=== PATIENT | male | born 2005 | race Caucasian/White ===

== ENCOUNTER 2025-03-14 15:58 | Emergency (ER) | payer OTHER, MEDICAID, SELFPAY ==
--- NOTE | ~2025-03-14 | XR_ITS ---
Clinical history:. Trauma. EXAM:X-ray finger fourth left minimum 2 views TECHNIQUE:4 images of the left fourth finger were obtained. Comparisons:None available FINDINGS: [ No significant degenerative change.] [ No radiographic evidence for an acute fracture or dislocation.] [ No radiopaque foreign body.] [ No sclerotic or destructive bone lesions.] IMPRESSION: 1. No fracture identified. If symptoms persist or worsen consider a short-term follow-up study or additional imaging for further assessment. Reviewed, dictated and finalized at location Q. IMPRESSION: 1. No fracture identified. If symptoms persist or worsen consider a short-term follow-up study or addition al imaging for further assessment.
[2025-03-14 16:00] VITALS: BP 119/70; PULSE 88; RESP 20; TEMP 36.8; O2SAT 100
--- NOTE | 2025-03-14 16:01 | ED_ITS ---
HPI - General Adult General Chief complaint: Extremity Injury, Upper Stated complaint: FINGER INJURY Time Seen by Provider: 03/14/25 16:01 Source: patient Mode of arrival: ambulatory Limitations: no limitations History of Present Illness HPI narrative: 19 years old white male came to the ED with pain at the tip of the left ring finger after got smashed between a brick wall and a metal object. He denies other injuries. Related Data Home Medications ?Medication ?Instructions ?Recorded ?Confirmed ?Last Taken ?Type No Home Medications 03/14/25 03/14/25 U nknown History Allergies Allergy/AdvReac Type Severity Reaction Status Date / Time No Known Allergies Allergy Verified 03/14/25 16:07 Review of Systems Review of Systems: All systems reviewed & are unremarkable except as noted in HPI and below Exam Narrative: General appearance: Well-developed, well-nourished Skin: Normal color Vascular: Normal peripheral pulses, normal capillary refill. Musculoskeletal: Left ring finger showing abrasion at the tip dorsally, less than 25% sub angular hematoma otherwise no swelling, no deformity, no erythema, no discharge Neurologic: Alert and oriented ?3, Course Vital Signs Vital signs: Vital Signs Temperature 36.8 C 03/14/25 16:00 Pulse Rate 88 03/14/25 16:00 Respiratory Rate 20 03/14/25 16:00 Blood Pressure 119/70 03/14/25 16:00 Pulse Oximetry 100 03/14/25 16:00 Temperature 36.8 C 03/14/25 16:00 Pulse Rate 88 03/14/25 16:00 Respiratory Rate 20 03/14/25 16:00 Blood Pressure 119/70 03/14/25 16:00 Pulse Oximetry 100 03/14/25 16:00 Medical Decision Making Vital Signs Vital Signs: Vital Signs Temperature 36.8 C 03/14/25 16:00 Pulse Rate 88 03/14/25 16:00 Respiratory Rate 20 03/14/25 16:00 Blood Pressure 119/70 03/14/25 16:00 Pulse Oximetry 100 03/14/25 16:00 Temperature 36.8 C 03/14/25 16:00 Pulse Rate 88 03/14/25 16:00 Respiratory Rate 20 03/14/25 16:00 Blood Pressure 119/70 03/14/25 16:00 Pulse Oximetry 100 03/14/25 16:00 Imaging Data Radiologist's impression: Impressions Finger X-Ray 03/14/25 16:13 IMPRESSION: 1. No fracture identified. If symptoms persist or worsen consider a short-term follow-up study or additional imaging for further assessment. Critical Care Time Critical Care Time Critical Care Time: No Discharge Plan Discharge Clinical Impression: Contusion of finger, Abrasion hand Patient Disposition: Home Condition: Stable Instructions: Subungual Hematoma (ED) Additional Instructions: Return if symptoms are worsening , call your family physician for appointment, take Tylenol, ibuprofen as as needed for aches and pain, continue home medications. Patient Language: [place] Islander Prescriptions: No Action No Home Medications Follow-up/Referrals: UNKNOWN,DOCTOR [Primary Care Provider]
[2025-03-14] MEDS: NEOMYCIN/POLYMYXIN/BACITRACIN OINTMENT PACKET 1 PACKET TOPICAL (16:29)
--- OUTSIDE RECORDS SUMMARY | 2025-03-14 17:49 | XMS_ITS | Clinical Summary ---
Author Organization [facility] Address [facility] [place] [address] Care Team Providers Care Police Dispatcher Name Role Phone None, Provider MD Primary Care Provider Unavaila ble Allergies No known active allergies Medications amoxicillin-clav ulanate (AUGMENTIN) 400-57 MG/5ML suspension TAKE 10 ML BY MOUTH EVERY TWELVE HOURS 07/31/2023 Active Immunizations Immunization Administration Dates Next Due Tdap (Boostrix) 03/16/2023 Social History Tobacco Use Types Packs/Day Years Used Date Smoking Tobacco: Never Passive Smoke Exposure: Never Smokeless Tobacco: Never Tobacco Cessation:Counseling Given: Not Answered Alcohol Use Standard Drinks/Week Comments Never 0 (1 standard drink = 0.6 oz pur e alcohol) PHQ-2 Answer Date Recorded Patient Health Questionnaire-2 Score 0 08/09/2023 Sex and Gender Information Value Date Recorded Sex Assigned at Not on file 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 Gender Identity Not on file Sexual Orientation Not on file Last Filed Vital Signs Vital Sign Reading Time Taken Comments Blood Pressure 102/74 08/09/2023 6:27 PM CDT Pulse 100 08/09/2023 6:27 PM CDT Temperature 36.7 C (98 F) 08/09/2023 6:27 PM CDT Respiratory Rate 16 08/09/2023 6:27 PM CDT Oxygen Saturation 98% 08/09/2023 6:27 PM CDT Inhaled Oxygen Concentration - - Weight 62.1 kg (137 lb) 08/09/2023 6:27 PM CDT Height 185.4 cm (6' 1) 08/09/2023 6:27 PM CDT Body Mass Index 18.07 08/09/2023 6:27 PM CDT Plan of Treatment Health Maintenance Due Date Last Done Comments Annual Physical 10/03/2007 Hepatitis A Vaccines (2 of 2 - 2-dose series) 05/16/2016 11/15/2015 HPV Vaccines (1 - Male 3-dose series) 10/03/2019 Meningococcal B Vaccine (1 of 2 - Standard) 2020 Hepatitis C 2022 PHQ-2 (Physician [place]) 05/18/2024 08/09/2023 COVID-19 Vaccine (1 - season) 2025 Influenza Adult (#1) 2025 04/05/2008 DTaP, Tdap and Td Vaccines (8 - Td or Tdap) 03/16/2033 03/16/2023, 11/15/2015, 02/20/2010, Additional history exists Hepatitis B Vaccines Completed 04/07/2005, 01/30/2005, 2004, Additional history exists Pneumococcal Vaccine: Pediatrics (0 to 5 Years) and At-Risk Patients (6 to 49 Years) Aged Out 10/03/2005, 04/07/2005, 01/30/2005, Additional history exists No longer eligible based on patient's age to complete this topic Meningococcal Vaccine Aged Out 11/15/2015 No jose francisco eligible based on patient's age to complete this topic RSV Immunizations Under 20 Months Aged Out No longer eligible based on patient's age to complete this topic Insurance AETNA Care Teams Police Dispatcher Relationship Specialty Start Date End Date None, Provider, PCP - General UNKNOWN PHYSICIAN SPECIALTY 03/15/23
== END 2025-03-14 16:42 | disposition home or self-care (01) ==
PROVIDERS: Emergency Provider Emergency Medicine
DX: S60.415A Abrasion of left ring finger, initial encounter (principal); W23.0XXA Caught, crushed, jammed, or pinched between moving objects, initial encounter
CPT/HCPCS: 73140; 99283

== ENCOUNTER 2025-03-16 15:39 | Emergency (ER) | payer OTHER, MEDICAID, SELFPAY ==
[2025-03-16 15:39] VITALS: BP 123/75; PULSE 64; RESP 16; TEMP 36.8; O2SAT 97
--- OUTSIDE RECORDS SUMMARY | 2025-03-16 15:48 | XMS_ITS | Clinical Summary ---
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
--- NOTE | 2025-03-16 15:56 | ED.WOUNDLAC ---
HPI - Wound/Laceration General Chief Complaint: Wound/Laceration Stated Complaint: fingernail pulled off left ring finger Time Seen by Provider: 03/16/25 15:55 Source: patient and family Mode of arrival: ambulatory Limitations: no limitations History of Present Illness HPI narrative: This is a 19-year-old male with nail fingernail injury that occurred a few days ago and had a loose a fingernail on the 4th left finger and took a pair of pliers today and remove the rest of his nail. Currently there is no bleeding there is no numbness tingling has good range of motion as finger up-to-date with his tetanus. Onset (ago): hour(s) Place: home Patient tetanus UTD: Yes Context: accidental Related Data Home Medications ?Medication ?Instructions ?Recorded ?Confirmed ?Last Taken ?Type No Home Medications 03/14/25 03/14/25 Unknown History Allergies Allergy/AdvReac Type Severity Reaction Status Date / Time No Known Allergies Allergy Verified 03/14/25 16:07 Review of Systems Review of Systems: All systems reviewed & are unremarkable except as noted in HPI and below Exam Const: General: healthy appearing and no acute distress Nutritional Appearance: well nourished Resp: Effort & Inspection: normal respiratory effort Auscultation: clear to auscultation bilaterally Cardio: Rate: regular rate Rhythm: regular rhythm GI: GI Palp: Yes Soft to palpation Auscultation: normal bowel sounds Extrem: Other: Finger nail avulsion to his left 4th fingernail currently no bleeding Course Course Emergency Course: Medical decision making narrative: The patient was evaluated by myself in the emergency department. History obtained from patient who is an independent historian physical exam performed and witnessed by the nurse. Patient had his fingernail removed by himself with a pair of pliers up-to-date with his tetanus. Currently pain level is well controlled. Repeat assessment Doing well on repeat exam with no acute distress Repeat vitals are stable Patient agrees with discussion after shared medical decision making and agrees with discharge. All questions answered to the patient's satisfaction Triple antibiotic ointment was applied to the nail avulsion and wrapped with gauze. Advised follow-up with primary care physician within next 3 to 5 days. Vital Signs Vital signs: Vital Signs Temperature 36.8 C 03/16/25 15:39 Pulse Rate 64 03/16/25 15:39 Respiratory Rate 16 03/16/25 15:39 Blood Pressure 123/75 03/16/25 15:39 Pulse Oximetry 97 03/16/25 15:39 Oxygen Delivery Room Air 03/16/25 15:39 Temperature 36.8 C 03/16/25 15:39 Pulse Rate 64 03/16/25 15:39 Respiratory Rate 16 03/16/25 15:39 Blood Pressure 123/75 03/16/25 15:39 Pulse Oximetry 97 03/16/25 15:39 Oxygen Delivery Room Air 03/16/25 15:39 Critical Care Time Critical Care Time Critical Care Time: No Discharge Plan Discharge Clinical Impression: Avulsion of nail Patient Disposition: Home Condition: Stable Instructions: Antibiotic Form, Nail Avulsion (ED) Additional Instructions: Advised patient to take Tylenol or Motrin as needed, and can use Neosporin daily x3 days, follow-up with primary care physician if symptoms persist or worsen. Patient Language: Belgian Prescriptions: No Action No Home Medications Follow-up/Referrals: UNKNOWN,DOCTOR [Primary Care Provider] Time of Disposition: 16:00
--- NOTE | 2025-03-16 16:19 | PC.NURSE ---
On 03/16/25, the student, [JILL GLOVER ], provided care and completed [facility] documentation on this patient. I have reviewed the student's documentation and agree with the findings.
== END 2025-03-16 16:18 | disposition home or self-care (01) ==
LOC: CHSED 16:04
PROVIDERS: Emergency Provider Emergency Medicine
DX: S61.305A Unspecified open wound of left ring finger with damage to nail, initial encounter (principal); X58.XXXA Exposure to other specified factors, initial encounter
CPT/HCPCS: 99282

== ENCOUNTER 2025-04-14 01:17 | Emergency (ER) | payer OTHER, MEDICAID, SELFPAY ==
[2025-04-14 01:17] VITALS: BP 133/83; PULSE 86; RESP 20; TEMP 36.2; O2SAT 100
--- NOTE | 2025-04-14 01:26 | ED_ITS ---
HPI - General Adult General Chief complaint: Nausea/Vomiting/Diarrhea Stated complaint: vomiting Time Seen by Provider: 04/14/25 01:24 History of Present Illness HPI narrative: Michael is a previously healthy 19M that presented to the ED via EMS. He called the ambulance as he took 7 shots of everclear and started to have non-bloody vomiting. He took the shots to forget about a break up and not to harm himself. He reports nausea, vomiting and aches. NO CP or dyspnea. Related Data Home Medications ?Medication ?Instructions ?Recorded ?Confirmed ?Last Taken ?Type No Home Medications 03/14/25 03/16/25 U nknown History Allergies Allergy/AdvReac Type Severity Reaction Status Date / Time No Known Allergies Allergy Verified 03/16/25 16:21 Review of Systems 2 Review of Systems: All systems reviewed & are unremarkable except as noted in HPI and below Exam 2 Const: General: cooperative, healthy appearing, comfortable, no acute distress, well developed, alert, awake and Physically active O rientation/consciousness: oriented to person, oriented to place and oriented to time HENMT: Head: normal to inspection, normocephalic and atraumatic Ears: h earing grossly normal bilaterally and external ears normal Face/Nose/Sinus: N ormal external nose present Eyes: General: appearance normal, both eyes and all related structures P eriorbital: periorbital findings normal Sclera: sclerae normal Pupils: E qual, round and reactive pupils present Neck: Neck: normal visual inspection Chest: Chest palpation & inspection: normal inspection of the chest Resp: Effort & Inspection: normal respiratory effort, able to speak in complete sentences and no respiratory distress Auscultation: clear to auscultation bilaterally Cardio: Jugular venous distension: no JVD Rate: regular rate Rhythm: r egular rhythm GI: Inspection: normal to inspection GI Palp: Yes Soft to palpation A uscultation: normal bowel sounds Skin: General skin exam: normal color and no rashes or lesions noted Neuro: General: oriented to person, oriented to place and oriented to time Cranial nerves: Yes Equal, round and reactive pupils present Extrem: General: normal to inspection Course Course Emergency Course: Ordered fluids, pantoprazole, zofran and labs Vital Signs Vital signs: Vital Signs Temperature 97.1 F L 04/14/25 01:17 Pulse Rate 86 04/14/25 01:17 Respiratory Rate 20 04/14/25 01:17 Blood Pressure 133/83 04/14/25 01:17 Pulse Oximetry 100 04/14/25 01:17 Oxygen Delivery Room Air 04/14/25 01:17 Temperature 97.1 F L 04/14/25 01:17 Pulse Rate 86 04/14/25 01:17 Respiratory Rate 20 04/14/25 01:17 Blood Pressure 133/83 04/14/25 01:17 Pulse Oximetry 100 04/14/25 01:17 Oxygen Delivery Room Air 04/14/25 01:17 Medical Decision Making Vital Signs Vital Signs: Vital Signs Temperature 97.1 F L 04/14/25 01:17 Pulse Rate 86 04/14/25 01:17 Respiratory Rate 20 04/14/25 01:17 Blood Pressure 133/83 04/14/25 01:17 Pulse Oximetry 04/14/25 01:17 Oxygen Delivery Room Air 04/14/25 01:17 Temperature 97.1 F L 04/14/25 01:17 Pulse Rate 86 04/14/25 01:17 Respiratory Rate 20 04/14/25 01:17 Blood Pressure 133/83 04/14/25 01:17 Pulse Oximetry 04/14/25 01:17 Oxygen Delivery Room Air 04/14/25 01:17 Lab Data 04/14/25 01:54 04/14/25 01:54 Labs: Lab Results 04/14/25 Range/Units 01:54 WBC 8.5 (4.8-10.8) K/mm3 RBC 4.79 (4.70-6.10) M/mm3 Hgb 13.3 L (14.0-18.0) g/dL Hct 40.9 (40.0-54.0) % MCV 85.4 (78.0-102.0) fL MCH 27.8 (27.0-31.0) pg MCHC 32.5 (32-36) g/dL RDW 12.5 (11.6-14.4) % Plt Count 350 (150-420) K/mm3 MPV 9.4 (8.7-11.0) fl Immature Gran % (Auto) 0.2 H (0.0-0.0) % Neut % (Auto) 33.7 L (50.0-70.0) % Lymph % (Auto) 47.7 H (18.0-42.0) % Grant % (Auto) 9.5 (2.0-11.0) % Eos % (Auto) 8.3 H (1.0-6.0) % Baso % (Auto) 0.6 (0.0-1.0) % Lymph # (Auto) 4.03 (1.10-4.50) K/mm3 Grant # (Auto) 0.80 (0.10-0.90) K/mm3 Eos # (Auto) 0.70 H (0.02-0.50) K/mm3 Baso # (Auto) 0.05 (0.00-0.10) K/mm3 Abs Immat Gran (auto) 0.02 H (0.00-0.00) K/mm3 Absolute Neuts (auto) 2.85 (1.70-7.20) K/mm3 Absolute Nucleated RBC 0.00 (0.00-0.00) K/mm3 Nucleated RBC % 0.0 (0-0.0) % Sodium 147 H (137-145) mmol/L Potassium 3.2 L (3.4-5.0) mmol/L Chloride 109 H (98-107) mmol/L Carbon Dioxide 26 (22-30) mmol/L Anion Gap 12 (4-12) mmol/L BUN 13 (9-20) mg/dL Creatinine 0.77 (0.7-1.3) mg/dL Estim Creat Clear Calc 127 ml/min Estimated GFR > 60 (59 - ) Glucose 126 H (65-110) mg/dL Calculated Osmolality 306 H (285-295) mOsm/kg Calcium 8.4 (8.4-10.2) mg/dL Total Bilirubin 0.2 (0.2-1.3) mg/dL AST 29 (17-59) U/L ALT 15 (6-50) U/L Alkaline Phosphatase 65 (38-126) U/L Total Protein 6.4 (6.3-8.2) g/dL Albumin 4.3 (3.5-5.1) g/dL Ethyl Alcohol 127 (<10) mg/dL Discharge Plan Discharge Clinical Impression: Alcohol intoxication Patient Disposition: Home Condition: Stable Instructions: Alcohol Intoxication (ED) Patient Language: Vietnamese Prescriptions: No Action No Home Medications Follow-up/Referrals: Monroe,Phuong Alvarez MD [Primary Care Provider]
[2025-04-14] MEDS: SODIUM CHLORIDE 0.9% IV 1,000 ML 999 ML IV CONT (01:33)
[2025-04-14] MEDS: PANTOPRAZOLE SODIUM IV 40 MG VIAL IV PUSH (01:33)
[2025-04-14] MEDS: ONDANSETRON INJ 4 MG/2 ML VIAL IV PUSH (01:33)
--- NOTE | 2025-04-14 01:39 | PC.NURSE ---
PATIENT IS CURRENTLY RESTING ON STRETCHER. VOMITING HAS STOPPED AT THIS TIME. CALL LIGHT IN REACH. CURTAIN LEFT OPEN TO BE ABLE TO MONITOR PATIENT.
--- NOTE | 2025-04-14 01:51 | PC.NURSE ---
LISA WITH LAB AT THE BEDSIDE
--- NOTE | 2025-04-14 01:56 | PC.NURSE ---
FRIENDS AT THE BEDSIDE. PATIENT CURRENTLY VOMITING. PATIENT HAS BEEN MEDICATED FOR VOMITING AND NAUSEA
[2025-04-14 01:57] LABS: Hematocrit 40.9 % (40.0-54.0); Hemoglobin 13.3 g/dL (14.0-18.0); Immature Granulocyte Percent A 0.2 % (0.0-0.0); Lymphocytes Absolute Auto 4.03 K/mm3 (1.10-4.50); Mean Corpuscular HGB Conc 32.5 g/dL (32-36); Mean Corpuscular Hemoglobin 27.8 pg (27.0-31.0); Mean Corpuscular Volume 85.4 fL (78.0-102.0); Nucleated Red Blood Cells Absolute Auto 0.00 K/mm3 (0.00-0.00); Nucleated Red Blood Cells Perc 0.0 % (0-0.0); Platelet Count Result 350 K/mm3 (150-420); Red Blood Count 4.79 M/mm3 (4.70-6.10); White Blood Count 8.5 K/mm3 (4.8-10.8)
[2025-04-14 02:09] LABS: Alanine Aminotransferase 15 U/L (6-50); Albumin Level 4.3 g/dL (3.5-5.1); Alkaline Phosphatase 65 U/L (38-126); Anion Gap 12 mmol/L (4-12); Aspartate Amino Transferase 29 U/L (17-59); Bilirubin,Total 0.2 mg/dL (0.2-1.3); Blood Urea Nitrogen 13 mg/dL (9-20); Calcium 8.4 mg/dL (8.4-10.2); Carbon Dioxide 26 mmol/L (22-30); Chloride 109 mmol/L (98-107); Estimated CRCL calculation 127 ml/min; Estimated Glomerular Filt Rate > 60; Glucose 126 mg/dL (65-110); Osmolality Calculated 306 mOsm/kg (285-295); Potassium 3.2 mmol/L (3.4-5.0); Sodium 147 mmol/L (137-145); Total Protein 6.4 g/dL (6.3-8.2)
--- OUTSIDE RECORDS SUMMARY | 2025-04-14 02:22 | XMS_ITS | Clinical Summary ---
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
--- NOTE | 2025-04-14 02:23 | PC.NURSE ---
PATIENTS FRIENDS ARE AT THE BEDSIDE. ENCOURAGED THEM ALL TO LOWER VOICES WHILE IN DEPARTMENT.
[2025-04-14 03:25] VITALS: BP 112/59; PULSE 57; RESP 20; O2SAT 97
== END 2025-04-14 03:25 | disposition home or self-care (01) ==
PROVIDERS: Emergency Provider Family Medicine; PCP Family Medicine; Referring Provider Family Medicine
DX: F10.129 Alcohol abuse with intoxication, unspecified (principal); Y90.6 Blood alcohol level of 120-199 mg/100 ml
CPT/HCPCS: 36415; 80053; 82077; 85025; 96361; 96374; 96375; 99284; J2405; J2470; J7030

== ENCOUNTER 2025-04-30 04:42 | Emergency (ER) | payer SELFPAY ==
[2025-04-30] VITALS (43 sets, daily range): BP systolic 104–133; BP diastolic 58–83; PULSE 50–85; RESP 10–23; TEMP 36.7–37.2; O2SAT 96–100
--- NOTE | 2025-04-30 04:43 | ECG_ITS ---
Test Date: 2025-04-30 04:46:34 Measurements Intervals [place] Rate: 71 P: 43 RI: 141 QRS: 92 QRSD: 102 T: 49 QT: 381 QTc: 414 Interpretive Statements SINUS RHYTHM WITH SINUS ARRHYTHMIA RIGHT AXIS DEVIATION BORDERLINE ECG No previous ECG available for comparison Electronically Signed On 04-30-2025 09:26:29 UNIFORM PATROL POLICE OFFICER by Wilmer Kinsey D.O.
--- NOTE | 2025-04-30 04:50 | PC.NURSE ---
Call placed to Poison Control and orders received and obtained from [facility]. Orders and info given to Dr Sevilla for monitoring, labs, and a repeat post ingestion Tylenol level at the 4 hr corey around 0800. Case # [id number].
--- NOTE | 2025-04-30 05:04 | PC.NURSE ---
covid swab sent to lab
--- NOTE | 2025-04-30 05:16 | ED_ITS ---
HPI - Overdose General Chief Complaint: Overdose <Yogesh Sevilla MD - Last Filed: 04/30/25 06:52> Stated Complaint: SUICIDAL IDEATION <Yogesh Sevilla MD - Last Filed: 04/30/25 06:52> Time Seen by Provider: 04/30/25 04:55 <Yogesh Sevilla MD - Last Filed: 04/30/25 06:52> Source: patient and EMS <Yogesh Sevilla MD - Last Filed: 04/30/25 06:52> Mode of arrival: EMS <Yogesh Sevilla MD - Last Filed: 04/30/25 06:52> History of Present Illness HPI Narrative: This is a 19-year-old male brought in by EMS after a intentional overdose with Tylenol took a full bottle of 24 extra-strength 500mg Tylenol in an attempt to kill himself, patient states that he has been having thoughts and has taken Tylenol for the past 3 days and this morning around 4:00 a.m. patient took a 24 extra-strength Tylenol. Patient has been having emotional distress had a family member a couple of weeks ago and patient's mother kicked him out of the house. Patient has a history of depression but currently not on any medication. Patient currently is asymptomatic with no nausea vomiting, no anorexia or diaphoresis there is no abdominal pain, no abnormal temperature variations no yellowing of his skin or eyes no bleeding or bruising. <Yogesh Sevilla MD - Last Filed: 04/30/25 06:52> MD complaint: intentional overdose <Yogesh Sevilla MD - Last Filed: 04/30/25 06:52> Onset (ago): hour(s) <Yogesh Sevilla MD - Last Filed: 04/30/25 06:52> Time: 04:00 <Yogesh Sevilla MD - Last Filed: 04/30/25 06:52> Related Data Home Medications: Home Medications ?Medication ?Instructions ?Recorded ?Confirmed ?Last Taken ?Type No Home Medications 03/14/25 03/16/25 U nknown History <Yogesh Sevilla MD - Last Filed: 04/30/25 06:52> Allergies/Adverse Reactions: Allergies Allergy/AdvReac Type Severity Reaction Status Date / Time No Known Allergies Allergy Verified 04/30/25 04:49 <Yogesh Sevilla MD - Last Filed: 04/30/25 06:52> Review of Systems 2 Review of Systems: All systems reviewed & are unremarkable except as noted in HPI and below <Yogesh Sevilla MD - Last Filed: 04/30/25 06:52> [facility] Social History Social History: Social History Substance use type: does not use <Yogesh Sevilla MD - Last Filed: 04/30/25 06:52> Exam 2 Const: General: no acute distress <Yogesh Sevilla MD - Last Filed: 04/30/25 06:52> Nutritional Appearance: thin <Yogesh Sevilla MD - Last Filed: 04/30/25 06:52> Orientation/consciousness: patient oriented x3 <Yogesh Sevilla MD - Last Filed: 04/30/25 06:52> Limitations: no limitations <Yogesh Sevilla MD - Last Filed: 04/30/25 06:52> HENMT: Head: normal to inspection <Yogesh Sevilla MD - Last Filed: 04/30/25 06:52> Eyes: Conjunctivae: conjunctivae normal <Yogesh Sevilla MD - Last Filed: 04/30/25 06:52> Pupils: Equal, round and reactive pupils present <Yogesh Sevilla MD - Last Filed: 04/30/25 06:52> EOM: EOMs intact bilaterally <Yogesh Sevilla MD - Last Filed: 04/30/25 06:52> Neck: Neck: normal visual inspection, no lymphadenopathy and no meningeal signs <Yogesh Sevilla MD - Last Filed: 04/30/25 06:52> Chest: Chest palpation & inspection: normal inspection of the chest < Yogesh Sevilla MD - Last Filed: 04/30/25 06:52> Resp: Effort & Inspection: normal respiratory effort <Yogesh Sevilla MD - Last Filed: 04/30/25 06:52> Auscultation: clear to auscultation bilaterally <Yogesh Sevilla MD - Last Filed: 04/30/25 06:52> Cardio: Rate: regular rate <Yogesh Sevilla MD - Last Filed: 04/30/25 06:52> Rhythm: regular rhythm <Yogesh Sevilla MD - Last Filed: 04/30/25 06:52> GI: GI Palp: Yes Soft to palpation <Yogesh Sevilla MD - Last Filed: 04/30/25 06:52> Auscultation: normal bowel sounds <Yogesh Sevilla MD - Last Filed: 04/30/25 06:52> : General: Yes bladder normal to palpation <Yogesh Sevilla MD - Last Filed: 04/30/25 06:52> Skin: General skin exam: normal color <Yogesh Sevilla MD - Last Filed: 04/30/25 06:52> Rashes: no rashes <Yogesh Sevilla MD - Last Filed: 04/30/25 06:52> Wounds: no wounds <Yogesh Sevilla MD - Last Filed: 04/30/25 06:52> Neuro: General: patient oriented x3, moves all extremities, no meningeal signs and no focal motor deficits <Yogesh Sevilla MD - Last Filed: 04/30/25 06:52> Cranial nerves: Yes Nystagmus not present <Yogesh Sevilla MD - Last Filed: 04/30/25 06:52> Speech: normal speech <Yogesh Sevilla MD - Last Filed: 04/30/25 06:52> Extrem: General: normal to inspection, no clubbing, cyanosis or edema and no pedal edema <Yogesh Sevilla MD - Last Filed: 04/30/25 06:52> Psych: Affect: Sad affect present <Yogesh Sevilla MD - Last Filed: 04/30/25 06:52> Course Course Emergency Course: Poison control was called and patient is being monitored EKG performed shortness normal sinus rhythm usual medical clearance all labs and workup were obtained. Patient started on IV fluids and given a dose of activated charcoal. Poison control's recommendations to check acetaminophen level now and repeat at 8:00 a.m.. <Yogesh Sevilla MD - Last Filed: 04/30/25 06:52> Poison control was called and patient is being monitored EKG performed shortness normal sinus rhythm usual medical clearance all labs and workup were obtained. Patient started on IV fluids and given a dose of activated charcoal. Poison control's recommendations to check acetaminophen level now and repeat at 8:00 a.m. patient had a suicidal esteem in for an overdose age at 4:00 a.m.. He took around 25 pills of 500 mg each of acetaminophen. He presented to the ED at 4:52 a.m.. Patient received activated charcoal. His initial acetaminophen level was 72. A repeat level at 8:00 a.m. at the 4 hour post ingestion corey was 128. Patient had normal blood alcohol, salicylate levels. Tox screen was unremarkable. Patient had an EKG which revealed normal sinus rhythm with normal intervals without any ST-T wave changes noted. Case was discussed with poison control. Patient is deemed not a candidate for Mucomyst treatment. Patient is medically cleared for psych evaluation and treatment. Patient has been evaluated by psych counselor who advised admission for depression with suicidal attempt/Tylenol overdose. Repeat Tylenol level was 94 Patient has been accepted by Dr. Branham at [facility] in [place]. <Bony Harris MD - Last Filed: 04/30/25 13:56> Vital Signs Vital signs: Vital Signs Respiratory Rate 20 04/30/25 04:45 Temperature 36.9 C 04/30/25 04:52 Pulse Rate 55 L 04/30/25 13:00 Respiratory Rate 16 04/30/25 13:00 Blood Pressure 106/68 04/30/25 13:00 Pulse Oximetry 98 04/30/25 13:00 Oxygen Delivery Room Air 04/30/25 13:00 <Yogesh Sevilla MD - Last Filed: 04/30/25 06:52> Vital Signs Respiratory Rate 20 04/30/25 04:45 Temperature 36.9 C 04/30/25 04:52 Pulse Rate 55 L 04/30/25 13:00 Respiratory Rate 16 04/30/25 13:00 Blood Pressure 106/68 04/30/25 13:00 Pulse Oximetry 98 04/30/25 13:00 Oxygen Delivery Room Air 04/30/25 13:00 <Bony Harris MD - Last Filed: 04/30/25 13:56> [facility] MDM Narrative Medical decision making narrative: Depression with suicidal attempt acetaminophen overdose <Bony Harris MD - Last Filed: 04/30/25 13:56> Differential Diagnosis Differential Diagnosis: depression, <Bony Harris MD - Last Filed: 04/30/25 13:56> Lab Data MDM Lab Attestation statement: I personally reviewed the patient's lab results. <Bony Harris MD - Last Filed: 04/30/25 13:56> Result diagrams: 04/30/25 05:17 04/30/25 05:17 <Yogesh Sevilla MD - Last Filed: 04/30/25 06:52> Labs: Lab Results 04/30/25 04/30/25 04/30/25 Range/Units 04:59 05:00 05:03 WBC (4.8-10.8) K/mm3 RBC (4.70-6.10) M/mm3 Hgb (14.0-18.0) g/dL Hct (40.0-54.0) % MCV (78.0-102.0) fL MCH (27.0-31.0) pg MCHC (32-36) g/dL RDW (11.6-14.4) % Plt Count (150-420) K/mm3 MPV (8.7-11.0) fl Immature Gran % (Auto) (0.0-0.0) % Neut % (Auto) (50.0-70.0) % Lymph % (Auto) (18.0-42.0) % Swift % (Auto) (2.0-11.0) % Eos % (Auto) (1.0-6.0) % Baso % (Auto) (0.0-1.0) % Lymph # (Auto) (1.10-4.50) K/mm3 Swift # (Auto) (0.10-0.90) K/mm3 Eos # (Auto) (0.02-0.50) K/mm3 Baso # (Auto) (0.00-0.10) K/mm3 Abs Immat Gran (auto) (0.00-0.00) K/mm3 Absolute Neuts (auto) (1.70-7.20) K/mm3 Absolute Nucleated RBC (0.00-0.00) K/mm3 Nucleated RBC % (0-0.0) % PT 11.6 (9.50-12.1) Seconds INR 1.1 APTT 29.3 (23.9-30.70) Sec Sodium (137-145) mmol/L Potassium (3.4-5.0) mmol/L Chloride (98-107) mmol/L Carbon Dioxide (22-30) mmol/L Anion Gap (4-12) mmol/L BUN (9-20) mg/dL Creatinine (0.7-1.3) mg/dL Estim Creat Clear Calc ml/min Estimated GFR (59 - ) Glucose (65-110) mg/dL Calculated Osmolality (285-295) mOsm/kg Calcium (8.4-10.2) mg/dL Magnesium (1.6-2.3) mg/dL Total Bilirubin (0.2-1.3) mg/dL AST (17-59) U/L ALT (6-50) U/L Alkaline Phosphatase (38-126) U/L Total Protein (6.3-8.2) g/dL Albumin (3.5-5.1) g/dL TSH (0.465-4.680) uIU/mL Urine Color Light yellow (Yellow) Urine Appearance Clear (Clear) Urine pH 6.5 (5.0-8.0) Ur Specific [place] <= 1.005 L (1.010-1.020) Urine Protein Negative (Negative) Urine Glucose (UA) Negative (Negative) Urine Ketones Negative (Negative) Ur Blood (Man) Negative (Negative) Urine Nitrate Negative (Negative) Urine Bilirubin Negative (Negative) Urine Urobilinogen 0.2 (0.2-1.0) mg/dL Leukocyte Esterase Rfl Negative (Negative) CONSTANCE/UL Salicylates (2-20) mg/dL Urine Opiates Screen Negative (Negative) Urine Methadone Screen Negative (Negative) Acetaminophen (10-30) ug/mL Ur Barbiturates Screen Negative (Negative) Ur Phencyclidine Scrn Negative (Negative) Ur Amphetamine Screen Negative (Negative) U Benzodiazepines Scrn Negative (Negative) Urine Cocaine Screen Negative (Negative) U Cannabinoids Screen Negative (Negative) Ethyl Alcohol (<10) mg/dL Influenza A (RT-PCR) Negative (Negative) Influenza B (RT-PCR) Negative (Negative) RSV (RT-PCR) Negative (Negative) SARS-CoV-2 RNA (RT-PCR) Negative (Negative) 04/30/25 04/30/25 04/30/25 Range/Units 05:17 07:57 11:56 WBC 9.1 (4.8-10.8) K/mm3 RBC 5.10 (4.70-6.10) M/mm3 Hgb 14.2 (14.0-18.0) g/dL Hct 43.9 (40.0-54.0) % MCV 86.1 (78.0-102.0) fL MCH 27.8 (27.0-31.0) pg MCHC 32.3 (32-36) g/dL RDW 12.5 (11.6-14.4) % Plt Count 305 (150-420) K/mm3 MPV 9.6 (8.7-11.0) fl Immature Gran % (Auto) 0.3 H (0.0-0.0) % Neut % (Auto) 48.7 L (50.0-70.0) % Lymph % (Auto) 36.2 (18.0-42.0) % Swift % (Auto) 8.5 (2.0-11.0) % Eos % (Auto) 5.6 (1.0-6.0) % Baso % (Auto) 0.7 (0.0-1.0) % Lymph # (Auto) 3.29 (1.10-4.50) K/mm3 Swift # (Auto) 0.77 (0.10-0.90) K/mm3 Eos # (Auto) 0.51 H (0.02-0.50) K/mm3 Baso # (Auto) 0.06 (0.00-0.10) K/mm3 Abs Immat Gran (auto) 0.03 H (0.00-0.00) K/mm3 Absolute Neuts (auto) 4.43 (1.70-7.20) K/mm3 Absolute Nucleated RBC 0.00 (0.00-0.00) K/mm3 Nucleated RBC % 0.0 (0-0.0) % PT (9.50-12.1) Seconds INR APTT (23.9-30.70) Sec Sodium 145 (137-145) mmol/L Potassium 3.6 (3.4-5.0) mmol/L Chloride 109 H (98-107) mmol/L Carbon Dioxide 27 (22-30) mmol/L Anion Gap 9 (4-12) mmol/L BUN 10 (9-20) mg/dL Creatinine 0.72 (0.7-1.3) mg/dL Estim Creat Clear Calc 141 ml/min Estimated GFR > 60 (59 - ) Glucose 126 H (65-110) mg/dL Calculated Osmolality 301 H (285-295) mOsm/kg Calcium 9.1 (8.4-10.2) mg/dL Magnesium 2.0 (1.6-2.3) mg/dL Total Bilirubin 0.4 (0.2-1.3) mg/dL AST 28 (17-59) U/L ALT 13 (6-50) U/L Alkaline Phosphatase 73 (38-126) U/L Total Protein 6.9 (6.3-8.2) g/dL Albumin 4.5 (3.5-5.1) g/dL TSH 3.520 (0.465-4.680) uIU/mL Urine Color (Yellow) Urine Appearance (Clear) Urine pH (5.0-8.0) Ur Specific [place] (1.010-1.020) Urine Protein (Negative) Urine Glucose (UA) (Negative) Urine Ketones (Negative) Ur Blood (Man) (Negative) Urine Nitrate (Negative) Urine Bilirubin (Negative) Urine Urobilinogen (0.2-1.0) mg/dL Leukocyte Esterase Rfl (Negative) CONSTANCE/UL Salicylates < 1.0 L (2-20) mg/dL Urine Opiates Screen (Negative) Urine Methadone Screen (Negative) Acetaminophen 72 H 128 H 94 H (10-30) ug/mL Ur Barbiturates Screen (Negative) Ur Phencyclidine Scrn (Negative) Ur Amphetamine Screen (Negative) U Benzodiazepines Scrn (Negative) Urine Cocaine Screen (Negative) U Cannabinoids Screen (Negative) Ethyl Alcohol < 10 (<10) mg/dL Influenza A (RT-PCR) (Negative) Influenza B (RT-PCR) (Negative) RSV (RT-PCR) (Negative) SARS-CoV-2 RNA (RT-PCR) (Negative) <Yogesh Sevilla MD - Last Filed: 04/30/25 06:52> Lab Results 04/30/25 04/30/25 04/30/25 Range/Units 04:59 05:00 05:03 WBC (4.8-10.8) K/mm3 RBC (4.70-6.10) M/mm3 Hgb (14.0-18.0) g/dL Hct (40.0-54.0) % MCV (78.0-102.0) fL MCH (27.0-31.0) pg MCHC (32-36) g/dL RDW (11.6-14.4) % Plt Count (150-420) K/mm3 MPV (8.7-11.0) fl Immature Gran % (Auto) (0.0-0.0) % Neut % (Auto) (50.0-70.0) % Lymph % (Auto) (18.0-42.0) % Swift % (Auto) (2.0-11.0) % Eos % (Auto) (1.0-6.0) % Baso % (Auto) (0.0-1.0) % Lymph # (Auto) (1.10-4.50) K/mm3 [place] # (Auto) (0.10-0.90) K/mm3 Eos # (Auto) (0.02-0.50) K/mm3 Baso # (Auto) (0.00-0.10) K/mm3 Abs Immat Gran (auto) (0.00-0.00) K/mm3 Absolute Neuts (auto) (1.70-7.20) K/mm3 Absolute Nucleated RBC (0.00-0.00) K/mm3 Nucleated RBC % (0-0.0) % PT 11.6 (9.50-12.1) Seconds INR 1.1 APTT 29.3 (23.9-30.70) Sec Sodium (137-145) mmol/L Potassium (3.4-5.0) mmol/L Chloride (98-107) mmol/L Carbon Dioxide (22-30) mmol/L Anion Gap (4-12) mmol/L BUN (9-20) mg/dL Creatinine (0.7-1.3) mg/dL Estim Creat Clear Calc ml/min Estimated GFR (59 - ) Glucose (65-110) mg/dL Calculated Osmolality (285-295) mOsm/kg Calcium (8.4-10.2) mg/dL Magnesium (1.6-2.3) mg/dL Total Bilirubin (0.2-1.3) mg/dL AST (17-59) U/L ALT (6-50) U/L Alkaline Phosphatase (38-126) U/L Total Protein (6.3-8.2) g/dL Albumin (3.5-5.1) g/dL TSH (0.465-4.680) uIU/mL Urine Color Light yellow (Yellow) Urine Appearance Clear (Clear) Urine pH 6.5 (5.0-8.0) Ur Specific [place] <= 1.005 L (1.010-1.020) Urine Protein Negative (Negative) Urine Glucose (UA) Negative (Negative) Urine Ketones Negative (Negative) Ur Blood (Man) Negative (Negative) Urine Nitrate Negative (Negative) Urine Bilirubin Negative (Negative) Urine Urobilinogen 0.2 (0.2-1.0) mg/dL Leukocyte Esterase Rfl Negative (Negative) CONSTANCE/UL Salicylates (2-20) mg/dL Urine Opiates Screen Negative (Negative) Urine Methadone Screen Negative (Negative) Acetaminophen (10-30) ug/mL Ur Barbiturates Screen Negative (Negative) Ur Phencyclidine Scrn Negative (Negative) Ur Amphetamine Screen Negative (Negative) U Benzodiazepines Scrn Negative (Negative) Urine Cocaine Screen Negative (Negative) U Cannabinoids Screen Negative (Negative) Ethyl Alcohol (<10) mg/dL Influenza A (RT-PCR) Negative (Negative) Influenza B (RT-PCR) Negative (Negative) RSV (RT-PCR) Negative (Negative) SARS-CoV-2 RNA (RT-PCR) Negative (Negative) 04/30/25 04/30/25 04/30/25 Range/Units 05:17 07:57 11:56 WBC 9.1 (4.8-10.8) K/mm3 RBC 5.10 (4.70-6.10) M/mm3 Hgb 14.2 (14.0-18.0) g/dL Hct 43.9 (40.0-54.0) % MCV 86.1 (78.0-102.0) fL MCH 27.8 (27.0-31.0) pg MCHC 32.3 (32-36) g/dL RDW 12.5 (11.6-14.4) % Plt Count 305 (150-420) K/mm3 MPV 9.6 (8.7-11.0) fl Immature Gran % (Auto) 0.3 H (0.0-0.0) % Neut % (Auto) 48.7 L (50.0-70.0) % Lymph % (Auto) 36.2 (18.0-42.0) % Swift % (Auto) 8.5 (2.0-11.0) % Eos % (Auto) 5.6 (1.0-6.0) % Baso % (Auto) 0.7 (0.0-1.0) % Lymph # (Auto) 3.29 (1.10-4.50) K/mm3 [place] # (Auto) 0.77 (0.10-0.90) K/mm3 Eos # (Auto) 0.51 H (0.02-0.50) K/mm3 Baso # (Auto) 0.06 (0.00-0.10) K/mm3 Abs Immat Gran (auto) 0.03 H (0.00-0.00) K/mm3 Absolute Neuts (auto) 4.43 (1.70-7.20) K/mm3 Absolute Nucleated RBC 0.00 (0.00-0.00) K/mm3 Nucleated RBC % 0.0 (0-0.0) % PT (9.50-12.1) Seconds INR APTT (23.9-30.70) Sec Sodium 145 (137-145) mmol/L Potassium 3.6 (3.4-5.0) mmol/L Chloride 109 H (98-107) mmol/L Carbon Dioxide 27 (22-30) mmol/L Anion Gap 9 (4-12) mmol/L BUN 10 (9-20) mg/dL Creatinine 0.72 (0.7-1.3) mg/dL Estim Creat Clear Calc 141 ml/min Estimated GFR > 60 (59 - ) Glucose 126 H (65-110) mg/dL Calculated Osmolality 301 H (285-295) mOsm/kg Calcium 9.1 (8.4-10.2) mg/dL Magnesium 2.0 (1.6-2.3) mg/dL Total Bilirubin 0.4 (0.2-1.3) mg/dL AST 28 (17-59) U/L ALT 13 (6-50) U/L Alkaline Phosphatase 73 (38-126) U/L Total Protein 6.9 (6.3-8.2) g/dL Albumin 4.5 (3.5-5.1) g/dL TSH 3.520 (0.465-4.680) uIU/mL Urine Color (Yellow) Urine Appearance (Clear) Urine pH (5.0-8.0) Ur Specific [place] (1.010-1.020) Urine Protein (Negative) Urine Glucose (UA) (Negative) Urine Ketones (Negative) Ur Blood (Man) (Negative) Urine Nitrate (Negative) Urine Bilirubin (Negative) Urine Urobilinogen (0.2-1.0) mg/dL Leukocyte Esterase Rfl (Negative) CONSTANCE/UL Salicylates < 1.0 L (2-20) mg/dL Urine Opiates Screen (Negative) Urine Methadone Screen (Negative) Acetaminophen 72 H 128 H 94 H (10-30) ug/mL Ur Barbiturates Screen (Negative) Ur Phencyclidine Scrn (Negative) Ur Amphetamine Screen (Negative) U Benzodiazepines Scrn (Negative) Urine Cocaine Screen (Negative) U Cannabinoids Screen (Negative) Ethyl Alcohol < 10 (<10) mg/dL Influenza A (RT-PCR) (Negative) Influenza B (RT-PCR) (Negative) RSV (RT-PCR) (Negative) SARS-CoV-2 RNA (RT-PCR) (Negative) <Bony Harris MD - Last Filed: 04/30/25 13:56> Critical Care Time Critical Care Time Critical Care Time: No <Yogesh Sevilla MD - Last Filed: 04/30/25 06:52> Discharge Plan Discharge Clinical Impression: Acetaminophen overdose Qualifiers: Encounter type: initial encounter Injury intent: intentional self-harm Q ualified Code(s): T39.1X2A - Poisoning by 4-Aminophenol derivatives, intentional self-harm, initial encounter Depression Qualifiers: Depression Type: major depressive disorder Major depression recurrence: u nspecified whether recurrent Active/Remission status: currently active Major depression episode severity: severe Psychotic features: without psychotic features Qualified Code(s): F32.2 - Major depressive disorder, single episode, severe without psychotic features <Yogesh Sevilla MD - Last Filed: 04/30/25 06:52> Patient Disposition: Still a Patient <Yogesh Sevilla MD - Last Filed: 04/30/25 06:52> Condition: Stable <Yogesh Sevilla MD - Last Filed: 04/30/25 06:52> Additional Instructions: Transfer patient to [facility]. Patient has been accepted by Dr. Branham <Yogesh Sevilla MD - Last Filed: 04/30/25 06:52> Patient Language: Finnish <Yogesh Sevilla MD - Last Filed: 04/30/25 06:52> Prescriptions: No Action No Home Medications <Yogesh Sevilla MD - Last Filed: 04/30/25 06:52> Follow-up/Referrals: UNKNOWN,DOCTOR [Primary Care Provider] <Yogesh Sevilla MD - Last Filed: 04/30/25 06:52> Time of Disposition: 13:55 <Yogesh Sevilla MD - Last Filed: 04/30/25 06:52> 13:55 <Bony Harris MD - Last Filed: 04/30/25 13:56>
[2025-04-30] MEDS: SODIUM CHLORIDE 0.9% IV 1,000 ML 999 ML IV CONT (05:23)
[2025-04-30] MEDS: CHARCOAL ACTIVATED LIQUID 25 GM/120 ML BOTTLE 50 GM PO (05:24)
[2025-04-30 05:33] LABS: Hematocrit 43.9 % (40.0-54.0); Hemoglobin 14.2 g/dL (14.0-18.0); Immature Granulocyte Percent A 0.3 % (0.0-0.0); Lymphocytes Absolute Auto 3.29 K/mm3 (1.10-4.50); Mean Corpuscular HGB Conc 32.3 g/dL (32-36); Mean Corpuscular Hemoglobin 27.8 pg (27.0-31.0); Mean Corpuscular Volume 86.1 fL (78.0-102.0); Nucleated Red Blood Cells Absolute Auto 0.00 K/mm3 (0.00-0.00); Nucleated Red Blood Cells Perc 0.0 % (0-0.0); Platelet Count Result 305 K/mm3 (150-420); Red Blood Count 5.10 M/mm3 (4.70-6.10); White Blood Count 9.1 K/mm3 (4.8-10.8)
[2025-04-30 05:34] LABS: Add Urine Microscopic? NO; Appearance Urine Clear (Clear); Glucose Urine UA Negative (Negative); Leukocyte Esterase Ur Negative LEU/UL (Negative); Nitrate Urine Negative (Negative); Specific Grav Ur <= 1.005 (1.010-1.020)
[2025-04-30 05:39] LABS: Acetaminophen 72 ug/mL (10-30); Salicylate < 1.0 mg/dL (2-20)
[2025-04-30 05:41] LABS: INR 1.1; Partial Thromboplastin Time 29.3 Sec (23.9-30.70); Prothrombin Time 11.6 Seconds (9.50-12.1)
[2025-04-30 05:54] LABS: Cannabinoid Screen Urine Negative (Negative)
--- NOTE | 2025-04-30 06:01 | PC.NURSE ---
Sitter remains at bedside, continuing to monitor, VSS, pt resting w/ lights dimmed. No c/o at this time.
[2025-04-30 06:10] LABS: Anion Gap 9 mmol/L (4-12); Blood Urea Nitrogen 10 mg/dL (9-20); Carbon Dioxide 27 mmol/L (22-30); Chloride 109 mmol/L (98-107); Estimated CRCL calculation 141 ml/min; Estimated Glomerular Filt Rate > 60; Glucose 126 mg/dL (65-110); Osmolality Calculated 301 mOsm/kg (285-295); Potassium 3.6 mmol/L (3.4-5.0); Sodium 145 mmol/L (137-145)
[2025-04-30 06:11] LABS: Alanine Aminotransferase 13 U/L (6-50); Albumin Level 4.5 g/dL (3.5-5.1); Alkaline Phosphatase 73 U/L (38-126); Aspartate Amino Transferase 28 U/L (17-59); Bilirubin,Total 0.4 mg/dL (0.2-1.3); Calcium 9.1 mg/dL (8.4-10.2); Thyroid Stimulating Hormone 3.520 uIU/mL (0.465-4.680); Total Protein 6.9 g/dL (6.3-8.2)
[2025-04-30 06:20] LABS: Magnesium 2.0 mg/dL (1.6-2.3)
[2025-04-30 06:38] LABS: Influenza A QL RT-PCR Negative (Negative); Influenza B QL RT-PCR Negative (Negative); RSV RNA, RT-PCR Negative (Negative); SARS-CoV-2 RNA PCR Negative (Negative)
--- NOTE | 2025-04-30 06:59 | PC.NURSE ---
Pt sleeping, RR even and nonlabored, continuing to monitor w/ sitter at bedside. Report to ROSALIE Alcala
[2025-04-30 08:17] LABS: Acetaminophen 128 ug/mL (10-30)
--- NOTE | 2025-04-30 08:21 | PC.NURSE ---
call to poison control, spoke with
--- NOTE | 2025-04-30 08:27 | PC.NURSE ---
update with all lab results to benny with poison control . will close case. no treatment required unless acetaminophen level greater than 150. dr odom notified.
[2025-04-30 12:14] LABS: Acetaminophen 94 ug/mL (10-30)
== END 2025-04-30 15:11 ==
PROVIDERS: Emergency Medicine; Emergency Provider Internal Medicine Critical Care Medicine
DX: T39.1X2A Poisoning by 4-Aminophenol derivatives, intentional self-harm, initial encounter (principal); F32.2 Major depressive disorder, single episode, severe without psychotic features; Z20.822 Contact with and (suspected) exposure to COVID-19
CPT/HCPCS: 36415; 80053; 80143; 80179; 80307; 81003; 82077; 83735; 84443; 85025; 85610; 85730; 87637; 93005; 96360; 99285; J7030